=== PATIENT | male | born 1965 | race Caucasian/White ===

== ENCOUNTER → 2017-01-08 | Outpatient (CLI) | payer BC ==
[~2017-01-08] MED LIST: AZIT250T PO; GENT3.5O18 OD; GENTAMICIN; NAPR-243 PO
--- NOTE | 2017-01-08 20:12 | Diagnostic Imaging Report ---
INDICATION: Neck pain with radiculopathy. TECHNIQUE: AP, lateral and odontoid views cervical spine.. CORRELATION STUDY: None FINDINGS: Cervical spine alignment anatomic. Vertebral body heights maintained. Mild asymmetric disc space narrowing at C5-C6 level with minimal osteophyte formation. Otherwise, disc spaces fairly well preserved. There does appear to be slight asymmetric hypertrophic facet arthropathy, particularly on the left greater than right. Odontoid intact. Lateral masses of C1 and C2 aligned. Prevertebral soft tissues unremarkable. IMPRESSION: 1. Mild hypertrophic facet arthropathy suggested. Mild asymmetric C5-C6 disc space narrowing. Otherwise relatively unremarkable cervical spine examination. Dictated by: Dictated on workstation # [id number]
== END ==
LOC: RAD 13:26
PROVIDERS: ATTEND Internal Medicine
DX: M54.2 Cervicalgia (principal)
CPT/HCPCS: 72040

== ENCOUNTER → 2019-10-05 | Outpatient (CLI) | payer BC ==
--- NOTE | 2019-10-05 11:30 | Diagnostic Imaging Report ---
CT CHEST SCREENING WO TECHNIQUE: Low-dose unenhanced CT of the chest was performed according to the screening protocol. Coronal MIP and sagittal MPR reformats are created. Automatic exposure controls were utilized to keep dose as low as reasonably achievable. INDICATION: 53-year-old former smoker with 34 pack-year history of smoking. Quit smoking two weeks ago. COMPARISON: CT chest of 05/23/2011. FINDINGS: Pulmonary findings: No endoluminal nodule within the trachea. No pulmonary mass or consolidation. Mild centrilobular emphysema in the lung apices is noted. There are two subcentimeter triangular nodules in the right middle lobe along the posterior margin of the minor fissure that are stable since prior examination and are benign in nature. There is an additional stable 5 mm intrapulmonary lymph node along the left major fissure (image 140, series 2) that is benign in nature. No new pulmonary nodule. Extrapulmonary findings: No pleural effusion. No axillary lymphadenopathy. No mediastinal, discrete hilar or juxtaphrenic lymphadenopathy. Heart is normal in size without pericardial effusion. Normal caliber thoracic aorta. No worrisome focal osseous lesions. IMPRESSION: 1. Baseline screening CT is negative for features of clinically active lung cancer. LUNG-RADS CATEGORY: 1 - Negative. MODIFIER: None. RECOMMENDATIONS: Continued annual screening with low-dose CT in 12 months. Dictated by: Dictated on workstation # [id number]
== END ==
LOC: RAD 10:55
PROVIDERS: ATTEND Internal Medicine
DX: Z12.2 Encounter for screening for malignant neoplasm of respiratory organs (principal); Z87.891 Personal history of nicotine dependence

== ENCOUNTER → 2020-04-24 | Outpatient (CLI) | payer BC, OTHER ==
--- NOTE | 2020-04-24 12:57 | Diagnostic Imaging Report ---
PROCEDURE: US Thyroid. TECHNIQUE: Multiple real-time grayscale images were obtained of the thyroid in various projections. INDICATION: Thyroid nodule. FINDINGS: The right lobe measures 3.6 x 1.8 x 1.9 cm. The left lobe measures 3.7 x 1.7 x 1.5 cm. Both lobes are slightly heterogeneous with no focal nodules. There is mild increased vascularity within both lobes with Doppler sampling. IMPRESSION: Mild thyromegaly with hypervascularity, consistent with thyroiditis. Dictated by: Dictated on workstation # [id number]
== END ==
LOC: RAD 10:36
PROVIDERS: ATTEND Internal Medicine
DX: E04.1 Nontoxic single thyroid nodule (principal)
CPT/HCPCS: 76536

== ENCOUNTER → 2020-11-21 | Outpatient (CLI) | payer OTHER ==
--- NOTE | 2020-11-21 13:53 | Diagnostic Imaging Report ---
EXAMINATION: CT Chest without contrast (lung screening). TECHNIQUE: Multiple contiguous axial images were obtained through the chest without the use of intravenous contrast according to lung cancer screening protocol. All CT scans use one or more of the following dose optimizing techniques: automated exposure control, MA and/or KvP adjustment based on a patient size and exam type, or iterative reconstruction. HISTORY: 35 pack year history of smoking. COMPARISON: 10/05/2019 FINDINGS: There is no edema or pneumonia. No pleural effusion. No pneumothorax. No suspicious nodules. There are few radha-fissural lymph nodes along the minor fissure in the right lung. There is no axillary or supraclavicular lymphadenopathy. There is no mediastinal lymphadenopathy. Heart size is normal. There are no coronary artery calcifications. No pericardial effusion. Aorta is normal in caliber. Limited views of the upper abdomen are unremarkable. There are no suspicious osseous lesions. IMPRESSION: 1. No suspicious pulmonary nodules. LUNG-RADS CATEGORY: 1 MODIFIER: None. Dictated by: Dictated on workstation # [id number]
== END ==
LOC: RAD 11:43
PROVIDERS: ATTEND Internal Medicine
DX: Z12.2 Encounter for screening for malignant neoplasm of respiratory organs (principal); Z87.891 Personal history of nicotine dependence
CPT/HCPCS: 71271